=== PATIENT | female | born 1980 | race Caucasian/White ===

== ENCOUNTER 2019-02-17 12:37 | Emergency (ER) | payer OTHER ==
[2019-02-17] MEDS: OXYCODONE/ACETAMINOPHEN (5/325) TAB PO (14:03)
== END 2019-02-17 15:07 | disposition home or self-care (01) ==
LOC: FTE 12:37
DX: N76.0 Acute vaginitis (principal); F17.210 Nicotine dependence, cigarettes, uncomplicated
CPT/HCPCS: 81025; 87591; 99284